=== PATIENT | male | born 1960 | race Caucasian/White ===

== ENCOUNTER 2018-10-12 15:07 | Outpatient (CLI) | payer OTHER ==
--- NOTE | 2018-10-13 09:23 | MRI Report ---
Reason: PAIN IN UNSPECIFIED SHOULDER Procedure Date: 10/12/2018 Accession Number: [id number] / [id number] Procedure: MRI - Shoulder RT W/O CPT Code: FULL RESULT: EXAM: RIGHT SHOULDER MRI WITHOUT CONTRAST EXAM DATE: 10/12/2018 03:56 PM. CLINICAL HISTORY: Right shoulder pain for 30 years which has been worsening over the past 2 months. COMPARISON: None. TECHNIQUE: Multiplanar, multisequence T1-weighted and fluid-sensitive sequences of the shoulder without contrast. Other: None. FINDINGS: Acromioclavicular Region: The acromion is type II. Marginal osteophytes, tiny subcortical cysts, slight cortical irregularity, small effusion at the AC joint. The coracoacromial and coracoclavicular ligaments are intact. No subacromial/subdeltoid bursal fluid. Glenohumeral Region: No subluxation. No effusion or loose bodies. The articular cartilage is unremarkable. The glenohumeral ligaments and joint capsule are unremarkable. Bone Marrow: There is a 4 mm subcortical cyst at the anterior inferior aspect of the glenoid. No acute fracture or bone lesions. Labrum: There is T2 hyperintense signal at the superior aspect of the labrum suspicious for intrasubstance degeneration or a SLAP tear. Musculature/Rotator Cuff: There is an approximately 9 x 8 mm high-grade (greater than 50% thickness) partial thickness intrasubstance tear at the distal end of the supraspinatus tendon. There is infraspinatus tendinosis. Teres minor tendon is unremarkable. There is an 8 x 5 mm low-grade partial-thickness intrasubstance insertional tear at the distal end of the subscapularis tendon. No edema or fatty atrophy. Biceps Tendon: The long head of the biceps tendon and biceps khris are intact. Other: The subcutaneous tissues are unremarkable. IMPRESSION: 1. High-grade partial-thickness intrasubstance tear at the distal end of the supraspinatus tendon and low-grade partial-thickness intrasubstance insertional tear at the distal end of the subscapularis tendon. Infraspinatus tendinosis. 2. Moderate AC joint osteoarthritis. 3. Findings suspicious for intrasubstance degeneration or SLAP tear at the superior aspect of the labrum. [facility]
== END 2018-10-12 15:08 | disposition home or self-care (01) ==
LOC: DI 15:07
PROVIDERS: ATTEND Physician Assistant
DX: M75.101 Unspecified rotator cuff tear or rupture of right shoulder, not specified as traumatic (principal); M19.011 Primary osteoarthritis, right shoulder; M67.911 Unspecified disorder of synovium and tendon, right shoulder